=== PATIENT | male | born 1965 ===

== ENCOUNTER 2016-10-21 12:52 | Emergency (ER) | payer SELFPAY ==
[2016-10-21 12:57] VITALS: BP 157/101; PULSE 58; RESP 16; TEMP 98; O2SAT 100
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
[2016-10-21 14:22] LABS: BASO % 0.4 % (0.0-2.0); EOS # 0.1 K/uL (0.0-0.7); EOS % 1.9 % (0.0-4.0); HEMOGLOBIN 16.1 g/dL (12.0-18.0); LYMPH # 2.4 K/uL (1.0-4.3); LYMPH % 39.1 % (20.0-40.0); MEAN CELL VOLUME 80.9 fl (80.0-94.0); MEAN CORPUSCULAR HEMOGLOBIN 27.3 pg (27.0-31.0); MEAN CORPUSCULAR HGB CONC 33.7 g/dL (33.0-37.0); MEAN PLATELET VOLUME 7.4 fl (7.2-11.7); MONO # 0.6 K/uL (0.0-0.8); MONO % 9.8 % (0.0-10.0); NEUT % 48.8 % (50.0-75.0); NRBC % 0.2 % (0.0-0.0); RBC 5.91 Mil/uL (4.40-5.90); RED CELL DISTRIBUTION WIDTH 14.7 % (11.5-14.5); WHITE BLOOD COUNT 6.1 K/uL (4.8-10.8)
[2016-10-21 14:34] LABS: ALB/GLOB RATIO 1.2 (1.0-2.1); ALBUMIN 4.4 g/dL (3.5-5.0); ALT/SGPT 50 U/L (21-72); AST/SGOT 31 U/L (17-59); BLOOD UREA NITROGEN 13 mg/dl (9-20); CALCIUM 9.9 mg/dL (8.4-10.2); GFR AFRICAN-AMERICAN > 60; GFR NON-AFRICAN AMERICAN > 60; MAGNESIUM 2.1 MG/DL (1.6-2.3)
--- NOTE | 2016-10-21 17:08 | RAD ---
HISTORY: Chest pain. COMPARISON: No prior. FINDINGS: LUNGS: No active pulmonary disease. PLEURA: No significant pleural effusion identified, no pneumothorax apparent. CARDIOVASCULAR: No radiographic findings to suggest acute or significant cardiovascular disease. OSSEOUS STRUCTURES: No significant abnormalities. VISUALIZED UPPER ABDOMEN: Normal. OTHER FINDINGS: None. IMPRESSION: No active disease. No preliminary report provided by emergency department personnel.
--- NOTE | 2016-10-22 10:41 | CARD ---
APPROVED REPORT EKG Measurement Heart [id number] <Conclusion> Sinus bradycardia Minimal voltage criteria for LVH, may be normal variant Borderline ECG
== END 2016-10-21 17:42 | disposition home or self-care (01) ==
LOC: H.ER 12:52
DX: R07.89 Other chest pain (principal)

== ENCOUNTER 2017-08-16 08:04 | Day surgery (SDC) | payer SELFPAY ==
[2017-08-16 08:49] VITALS: BMI 27.3
[2017-08-16] MEDS ORDERED: Lactated Ringer's 500 ML IV ONE ×3 (08:52→11:38)
[2017-08-16 09:02] VITALS: TEMP 96.5
[2017-08-16] MEDS ORDERED: Propofol 10 mg/ml Inj (20 ML) ONE (11:36)
[2017-08-16 12:26] VITALS: BP 96/61; PULSE 54; RESP 18; O2SAT 99
== END 2017-08-16 13:00 | disposition home or self-care (01) ==
LOC: H.ENDO 08:04
PROVIDERS: ATTEND Internal Medicine Gastroenterology
DX: Z12.11 Encounter for screening for malignant neoplasm of colon (principal); K64.0 First degree hemorrhoids
CPT/HCPCS: 45378; J2001; J2704; J7120